=== PATIENT | male | born 1985 | race Caucasian/White ===

== ENCOUNTER 2020-12-20 06:09 | Day surgery (SDC) | payer OTHER ==
[2020-12-20] MEDS ORDERED: Lactated Ringers 1,000 ML IV SCH (06:30)
[2020-12-20] MEDS ORDERED: Versed 2 MG/2 ML Injection ONE (08:09)
[2020-12-20] MEDS ORDERED: DIPRIVAN 200 MG/20 ML IV ONE ×2 (08:10→08:12)
[2020-12-20] MEDS ORDERED: Lactated Ringers 1,000 ML IV ONE (09:04)
[2020-12-20 09:13] VITALS: O2SAT 97
[2020-12-20 09:25] VITALS: BP 106/60; PULSE 70
--- NOTE | 2020-12-21 08:38 | OP ---
SURGERY DATE/TIME: 12/20/2020 0808 PREOPERATIVE DIAGNOSIS: Change in bowel habits. POSTOPERATIVE DIAGNOSIS: Small polyp in transverse colon. PROCEDURE: Colonoscopy with cold forceps biopsy. SURGEON: Dr. Salinas. ANESTHESIA: MAC. Medications given by anesthesia department. HISTORY: The patient is a 35 year-old white male presenting now for colonoscopic evaluation. The patient reports that he has had a change in bowel habits over the past year with his stools appearing square to him. He has had no bleeding and no changes otherwise. The patient was felt to need to have endoscopic evaluation. He was appraised of the risks of the procedure including the risk of perforation, phlebitis, untoward reaction to medication, bleeding and missed lesions. The patient verbalized his understanding and desired to have the procedure performed. DESCRIPTION OF PROCEDURE: The patient was given the medications by the anesthesia department. He had continuous pulse oximetry, ECG monitoring, intermittent blood pressure monitoring and tidal CO2 monitoring during the examination. He was placed in the left lateral decubitus position. A digital rectal examination was performed and revealed normal anal sphincter tone, no masses and normal prostate. The flexible Olympus pediatric colonoscope was used to intubate the rectum. A view of the colon was developed sequentially to the cecum. Upon insertion and withdrawal was noted a tiny polyp in the transverse colon. It was biopsied using cold biopsy technique to destroy the lesion. Upon insertion and withdrawal including a retroflex view in the rectum, no other mucosal lesions were encountered. The scope was removed from the patient who tolerated the procedure well and was sent back to OP recovery in good condition.
== END 2020-12-20 09:30 | disposition home or self-care (01) ==
LOC: SDC 06:09
PROVIDERS: ATTEND Family Medicine
DX: D12.3 Benign neoplasm of transverse colon (principal); R19.4 Change in bowel habit; Z79.899 Other long term (current) drug therapy
CPT/HCPCS: J2250; J2704